=== PATIENT | female | born 1950 | race Caucasian/White ===

== ENCOUNTER → 2017-10-05 | Outpatient (CLI) | payer MEDICARE ==
[~2017-10-05] MED LIST: HYDR-2966 PO; LEVO-317 PO; LOVA20TA99 PO
[2017-10-05 13:21] LABS: PLATELET COUNT, AUTOMATED 333 K/uL (150-450)
--- NOTE | 2017-10-05 18:01 | RADIOLOGY IMAGING REPORT ---
FACILITY: [facility] PATIENT NAME: Cydney Mackey : 1950 MR: [id number] V: [id number] EXAM DATE: ORDERING PHYSICIAN: SANTIAGO MUSA TECHNOLOGIST: Location: [facility] Patient: Cydney Mackey : 1950 Visit/Account:[id number] Date of Sevice: 10/05/2017 HAND 1 OR 2 VIEW BILATERAL Indication: Osteoarthritis, bilateral first MCP pain. Evaluate for rheumatoid arthritis. Comparison: None. Findings: Left hand: There is periarticular osteopenia at the MCP joints. The remaining mineralization is rio l. The DIP and PIP and MCP joints are smooth. There is mild narrowing of the first carpometacarpal leoncio int space. Right hand: There is periarticular osteopenia at the MCP joints. Remaining mineralization is normal. The DIP, PIP, and MCP joints are smooth. There is moderate narrowing of the first carpometacarpal anabela nt. IMPRESSION: 1. There is bilateral periarticular osteopenia at the MCP joints, which can represent early rheumato id arthritis. There are no marginal erosions in either right or left hand. 2. Moderate osteoarthritic degenerative changes at the first carpometacarpal joint bilaterally. Report Dictated By: Santiago Brothers at 10/05/2017 5:56 PM Report E-Signed By: Santiago Brothers at 10/05/2017 5:58 PM WSN:[id number]
== END ==
LOC: RAD 12:51
PROVIDERS: ATTEND Internal Medicine Rheumatology
DX: M85.842 Other specified disorders of bone density and structure, left hand (principal); M85.841 Other specified disorders of bone density and structure, right hand; M19.042 Primary osteoarthritis, left hand; M19.041 Primary osteoarthritis, right hand; M25.50 Pain in unspecified joint; M79.641 Pain in right hand; Z79.899 Other long term (current) drug therapy
CPT/HCPCS: 36415; 73120; 81001; 84443; 85025; 85651; 86038; 86140; 86160; 86200; 86225; 86235; 86430; 86706; G0472; 82040; 82247; 82310; 82374; 82435; 82565; 82947; 84075; 84132; 84155; 84295; 84450; 84460; 84520; 86803

== ENCOUNTER → 2017-10-17 | Outpatient (CLI) | payer MEDICARE ==
--- NOTE | 2017-10-17 13:53 | RADIOLOGY IMAGING REPORT ---
FACILITY: [facility] PATIENT NAME: Cydney Mackey : 1950 MR: [id number] V: [id number] EXAM DATE: ORDERING PHYSICIAN: GO WOOD TECHNOLOGIST: Location: [facility] Patient: Cydney Mackey : 1950 Visit/Account:[id number] Date of Sevice: 10/17/2017 EXAMINATION: Thyroid ultrasound 10/17/2017 12:30 PM History: Hypothyroidism COMPARISON STUDIES: Ultrasound of the neck 07/27/2015 FINDINGS: Thyroid size: Right lobe 2.7 x 1.2 x 1.2 cm Left lobe 3.8 x 0.7 x 1.1 cm Isthmus 2 mm Thyroid nodules: Right lobe - parenchyma is diffusely heterogeneous. Likely discrete hypoechoic ovoid nodule in the inferior aspect measures 9-10 x 4 x 5 mm. No significant discrete focal finding. Left lobe - diffusely heterogeneous parenchyma similar to the right. No discrete solid or cyst ic nodule. Isthmus - none Thyroid vascularity: Within normal range IMPRESSION: 1. Small and diffusely heterogeneous thyroid suggesting a chronic thyroiditis pattern. 2. Hypoechoic inferior pole right lobe thyroid nodule. Sonographic surveillance would be reasonable although FNA assessment would be available if desired. REFERENCE: 2015 [place] [employer] Management Guidelines for Adult Patients with Thyroid Nodules and D ifferentiated Thyroid Cancer: The [place] [employer] Guidelines Task Force on Thyroid Nodul es and Differentiated Thyroid Cancer. SONOGRAPHIC PATTERNS: * Benign: Purely cystic nodules (no solid component); estimated risk of malignancy <1 percent; no bi opsy recommended. * Very Low Suspicion: Spongiform or partially cystic nodules without any of the sonographic features described in low, intermediate, or high suspicion patterns; estimated risk of malignancy <3 percent; consider FNA at > 2 cm (Observation without FNA is also a reasonable option). * Low Suspicion: Isoechoic or hyperechoic solid nodule, or partially cystic nodule with eccentric so lid areas, without microcalcification, irregular margin or ETE (extra-thyroidal extension), or taller than wide shape; estimated risk of malignancy 5-10 percent; recommend FNA at >1.5 cm. * Intermediate Suspicion: Hypoechoic solid nodule with smooth margins without microcalcifications, E TE (extra-thyroidal extension), or taller than wide shape; estimated risk of malignancy 10-20 percent ; recommend FNA at > 1 cm. * High Suspicion: Solid hypoechoic nodule or solid hypoechoic component of a partially cystic nodule with one or more of the following features: irregular margins (infiltrative, microlobulated), microc alcifications, taller than wide shape, rim calcifications with small extrusive soft tissue component, evidence of ETE (extra-thyroidal extension); estimated risk of malignancy >70-90 percent; recommend FNA at > 1 cm. NOTES: * Although a sonographically suspicious subcentimeter thyroid nodule without evidence of extrathyroi deniz extension or sonographically suspicious lymph nodes may be observed with close sonographic follow -up rather than pursuing immediate FNA, patient age and preference may modify decision-making. A > 50% interval increase in nodule volume and/or development of new suspicious sonographic features are felt to be a valid reasons for potential re-aspiration of a nodule previously shown to have benig n FNA cytology. Report Dictated By: Santiago Davidson MD at 10/17/2017 1:45 PM Report E-Signed By: Santiago Davidson MD at 10/17/2017 1:49 PM WSN:[email or web address]
--- NOTE | 2017-10-17 15:19 | RADIOLOGY IMAGING REPORT ---
FACILITY: [facility] PATIENT NAME: LIDIA PADILLA : [id number] MR: [id number] V: [id number] EXAM DATE: [id number] ORDERING PHYSICIAN: GO WOOD TECHNOLOGIST: Amanda Zavala PROCEDURE: MAMMOGRAM SCREENING RIGHT UNILATERAL WITH CAD ASSISTED INTERPRETATION & 3D TOMOSYNTHESIS COMPARISON: 06/13/16 & priors back to 06/10/2001 INDICATIONS: screening/previous Left mastectomy. FINDINGS: The Right breast has scattered fibroglandular parenchymal density. There is an ovoid fairly circumscribed appearing fibroadenoma nodule or mass in the 8 o'clock area of the Right breast at mid to posterior depth which is not well seen previously. In both planes there is some suggestion of potential architectural distortion around this although its margins seem fairly smooth. This is on slice 12 in the CC & MLO planes. The remainder of the breast is mammographically unremarkable & unchanged. DIAGNOSTIC CATEGORY 0--INCOMPLETE: NEED ADDITIONAL IMAGING EVALUATION. RECOMMENDATIONS: ADDITIONAL MAMMOGRAPHIC VIEWS REQUIRED: RIGHT BREAST. ULTRASOUND: RIGHT BREAST. 1. Although the mass is fairly convincing I think repeat spot compression CC & MLO views with tomosynthesis would be worthwhile to exclude the presence of true architectural distortion associated with the lower outer quadrant mass. 2. Ultrasound of the 8 o'clock area in the lower outer quadrant mass is also recommended. IMPRESSION: BIRADS 0: Incomplete. Dictated by: Santiago Davidson on 10/17/2017 at 13:37 Transcribed by: JOSE on 10/17/2017 at 15:08 Approved by: Santiago Davisdon on 10/17/2017 at 15:18 [facility]
== END ==
LOC: MAMO 00:10
PROVIDERS: ATTEND Family Medicine
DX: Z12.31 Encounter for screening mammogram for malignant neoplasm of breast (principal); R92.8 Other abnormal and inconclusive findings on diagnostic imaging of breast; E04.9 Nontoxic goiter, unspecified
CPT/HCPCS: 76536; 77063; 77067

== ENCOUNTER → 2018-03-05 | Outpatient (CLI) | payer MEDICARE ==
--- NOTE | 2018-03-06 08:24 | RADIOLOGY IMAGING REPORT ---
FACILITY: [facility] [place] PATIENT NAME: LIDIA PADILLA : [id number] MR: [id number] V: [id number] EXAM DATE: [id number] ORDERING PHYSICIAN: GO WOOD TECHNOLOGIST: Tammy Baumann RT(R)(CT) PROCEDURE:US RIGHT BREAST COMPARISON:Right screening mammogram of 10/17/17. INDICATIONS:Further Evaluation FINDINGS: In the 9 o'clock position of the Right breast 5cm from the nipple is an ovoid hypoechoic nodule measuring 5.2mm in maximal dimension. The margins are slightly irregular and there is a small amount acoustic shadowing. This likely accounts for the nodular density of architectural distortion seen on the recent mammogram. An Ultrasound guided core biopsy of this nodule with biopsy clip placement and post biopsy mammogram recommended for further evaluation. DIAGNOSTIC CATEGORY 4--SUSPICIOUS FOR MALIGNANCY. RECOMMENDATIONS: ULTRASOUND-GUIDED CORE BIOPSY: RIGHT BREAST. IMPRESSION: BIRADS 4: Suspicious for malignancy. Ultrasound guided core biopsy of the hypoechoic shadowing nodule 9 o'clock position of the Right breast 5cm from the nipple recommended. A post biopsy clip placement and mammogram also recommended to document weather this nodule actually represents the mammographically detectable nodule. Findings were discussed with the patient at the time of the examination. Dictated by: Lorena Rome M.D. on 03/05/2018 at 16:28 Transcribed by: DENZEL on 03/06/2018 at 8:13 Approved by: Lorena Rome M.D. on 03/06/2018 at 8:23 [facility]
== END ==
LOC: US 00:36
PROVIDERS: ATTEND Family Medicine
DX: N63.13 Unspecified lump in the right breast, lower outer quadrant (principal)

== ENCOUNTER 2018-03-12 13:51 | Outpatient (RCR) | payer MEDICARE ==
[2018-03-12 14:31] LABS: INR 0.97
--- NOTE | 2018-03-15 17:23 | RADIOLOGY IMAGING REPORT ---
FACILITY: [facility] [place] PATIENT NAME: LIDIA PADILLA : [id number] MR: [id number] V: [id number] EXAM DATE: [id number] ORDERING PHYSICIAN: GO WOOD TECHNOLOGIST: Binta Mathis RDMS PROCEDURE: BIOPSY RIGHT BREAST COMPARISON: None. INDICATIONS: ABNORMAL RT MAMMO/MASS 9 O'CLOCK POSITION RIGHT BREAST FINDINGS: Informed consent was obtained. Patient's Right breast was prepped in the usual sterile fashion. Local anesthesia was accomplished with 1% Lidocaine. Under sonographic guidance four 12 Gauge core biopsies were obtained through the hypoechoic in the 9 o'clock position of the Right breast. The samples were placed in formalin & shown to the patient & sent to the laboratory for further evaluation. A biopsy clip was then placed in the biopsy site. A post biopsy mammogram demonstrated the biopsy clip to be located within the small nodular density in the 9 o'clock position of the Right breast. IMPRESSION: 1. Successful sonographically guided Right breast biopsy. 2. Pathology results are pending. Dictated by: Lorena Rome M.D. on 03/14/2018 at 16:29 Transcribed by: JOSE on 03/15/2018 at 9:56 Approved by: Lorena Rome M.D. on 03/15/2018 at 17:22 [facility]
--- NOTE | 2018-03-15 17:23 | RADIOLOGY IMAGING REPORT ---
FACILITY: [facility] PATIENT NAME: LIDIA PADILLA : [id number] MR: [id number] V: [id number] EXAM DATE: [id number] ORDERING PHYSICIAN: GO WOOD TECHNOLOGIST: Binta Mathis RDMS PROCEDURE: BIOPSY RIGHT BREAST COMPARISON: None. INDICATIONS: ABNORMAL RT MAMMO/MASS 9 O'CLOCK POSITION RIGHT BREAST FINDINGS: Informed consent was obtained. Patient's Right breast was prepped in the usual sterile fashion. Local anesthesia was accomplished with 1% Lidocaine. Under sonographic guidance four 12 Gauge core biopsies were obtained through the hypoechoic in the 9 o'clock position of the Right breast. The samples were placed in formalin & shown to the patient & sent to the laboratory for further evaluation. A biopsy clip was then placed in the biopsy site. A post biopsy mammogram demonstrated the biopsy clip to be located within the small nodular density in the 9 o'clock position of the Right breast. IMPRESSION: 1. Successful sonographically guided Right breast biopsy. 2. Pathology results are pending. Dictated by: Lorena Rome M.D. on 03/14/2018 at 16:29 Transcribed by: JOSE on 03/15/2018 at 9:56 Approved by: Lorena Rome M.D. on 03/15/2018 at 17:22 [facility]
[2018-03-30] MEDS ORDERED: GLUC-125 PO (16:30)
[2018-03-30] MEDS ORDERED: HEAL N SOOTHE PO (16:30)
[2018-03-30] MEDS ORDERED: OMEG-36 PO (16:30)
[2018-03-30] MEDS ORDERED: MV-M1TAB19 PO (16:30)
[2018-03-30] MEDS ORDERED: FURO20TA19 PO (16:32)
[2018-03-30] MEDS ORDERED: POTA10CA40 PO (16:32)
[2018-04-03] MEDS ORDERED: PRED-1 PO (08:50)
[2018-04-03] MEDS ORDERED: LEVO75TA73 PO (08:50)
[2018-04-03] MEDS ORDERED: PRAV20TA65 PO (08:50)
[2018-04-03] MEDS ORDERED: HYDR200T42 PO (08:50)
== END 2018-03-14 12:00 | disposition home or self-care (01) ==
LOC: US 13:51
PROVIDERS: ATTEND Family Medicine
DX: R92.2 Inconclusive mammogram (principal)
CPT/HCPCS: 19083; 36415; 77061; 77065; 85610; 85730; 88305; 88344; 88377

== ENCOUNTER 2018-04-05 01:55 | Observation (INO) | payer MEDICARE ==
[2018-04-04 13:15] LABS: PLATELET COUNT, AUTOMATED 281 K/uL (150-450)
--- NOTE | 2018-04-04 15:55 | RADIOLOGY IMAGING REPORT ---
FACILITY: [facility] PATIENT NAME: Cydney Mackey : 1950 MR: [id number] V: [id number] EXAM DATE: ORDERING PHYSICIAN: JOAQUÍN FARRELL TECHNOLOGIST: Location: [facility] [place] Patient: Cydney Mackey : 1950 Visit/Account:[id number] Date of Sevice: 04/04/2018 Cervical spine with flexion/extension views, three views. HISTORY: Preop, history of rheumatoid arthritis. COMPARISON: None. Mild loss of disc height is present at C2-3 and C3-4. Small endplate osteophytes and moderate loss o f disc height are present at C4-5. The C4 vertebral body is subluxed anteriorly by 2 mm with respect to C5, unchanged during flexion and extension. Moderate-sized endplate osteophytes, endplate sclero sis, vacuum phenomenon, and moderate to severe loss of disc height are present at C5-6. Small endpla te osteophytes and mild loss of disc height are present at C6-7. The C6 vertebral body is subluxed a nteriorly by 2 mm with respect to C7, unchanged during flexion and extension. Mild facet hypertrophy is present bilaterally at all cervical levels. Bony hypertrophy is present along the dens. Moderat e to severe joint space narrowing is present along the anterior aspect of the dens. No atlantoaxial subluxation occurs during flexion and extension. The bony spinal canal diameter is normal. No preve rtebral soft tissue swelling. IMPRESSION: Moderate to severe multilevel degenerative disc disease. Grade 1 C4-5 and C6-7 degenerative spondylolisthesis. Report Dictated By: Yao Hampton MD at 04/04/2018 3:47 PM Report E-Signed By: Yao Hampton MD at 04/04/2018 3:51 PM WSN:[email or web address]
[~2018-04-05] VITALS: Ht 157.5 cm; Wt 94.8 kg
[2018-04-05] VITALS (12 sets, daily range): BP systolic 98–147; BP diastolic 49–87
[~2018-04-05 01:55] MED LIST changes: +FURO20TA19 PO; +GLUC-125 PO; +HEAL N SOOTHE PO; +HYDR200T42 PO; +LEVO75TA73 PO; +MV-M1TAB19 PO; +OMEG-36 PO; +POTA10CA40 PO; +PRAV20TA65 PO; +PRED-1 PO
[2018-04-05] MEDS ORDERED: ACETAMINOPHEN(*)1000 MG/100 ML 100 ML IVPB ONE (10:59)
[2018-04-05] MEDS ORDERED: LIDOCAINE/PRILOCAINE 5 GM TUBE TP ONE (11:27)
[2018-04-05] MEDS ORDERED: LIDOCAINE MPF 1% 5 ML VIAL ONE (11:54)
[2018-04-05] MEDS ORDERED: METOCLOPRAMIDE 10 MG/2 ML SDV ONE (11:54)
[2018-04-05] MEDS ORDERED: ONDANSETRON 4 MG/2 ML VIAL ONE (11:54)
[2018-04-05] MEDS ORDERED: PROPOFOL EMUL(*) 10MG/ML 20 ML 20 ML ONE (11:54)
[2018-04-05] MEDS ORDERED: DEXAMETHASONE SOD 4 MG/ML VIAL ONE (11:55)
[2018-04-05] MEDS ORDERED: fentaNYL CITR 250 MCG/5 ML AMP ONE (12:00)
[2018-04-05] MEDS ORDERED: ceFAZolin(*) 2GM/D5W 50ML 50 ML IVPB ONE (12:55)
[2018-04-05] MEDS ORDERED: NORMOSOL R SOLN(*) 1000 ML BAG 1,000 ML IV PRN (12:55)
[2018-04-05] MEDS ORDERED: HYDROCORTISONE 100 MG/2 ML IVP ONE (12:55)
[2018-04-05] MEDS ORDERED: MIDAZOLAM 2 MG/2 ML VIAL IVP PRN (12:55)
[2018-04-05] MEDS ORDERED: FAMOTIDINE 20 MG TAB PO ONE (12:55)
[2018-04-05] MEDS ORDERED: LIDOCAINE/SOD BICARB 8.4% SYR ID ONE (12:55)
[2018-04-05] MEDS ORDERED: ROPIVACAINE 0.5% 20 ML VIAL ONE (15:20)
[2018-04-05] MEDS ORDERED: HYDROmorphone HCL 2 MG/ML SDV ONE (15:23)
--- NOTE | 2018-04-05 17:47 | RADIOLOGY IMAGING REPORT ---
FACILITY: [facility] [place] PATIENT NAME: Cydney Mackey : 1950 MR: [id number] V: [id number] EXAM DATE: ORDERING PHYSICIAN: JOAQUÍN FARRELL TECHNOLOGIST: Location: [facility] [place] Patient: Cydney Mackey : 1950 Visit/Account:[id number] Date of Sevice: 04/04/2018 SENTINAL NODE STUDY Provided History: [place] lymph node biopsy Additional History: Patient scheduled for right mastectomy Comparison: Prior mammograms Procedure: Preoperative lymph node localization procedure. Following informed consent and timeout the right breast was swabbed with ChloraPrep. Thereafter, technetium 99m labeled Tilmanocept ([facility] ) was injected intradermally at 12:00 3:00 6:00 and 9:00 at the periareolar border. Approximately 496 microcuries of technetium 99m labeled Tilmanocept was administered. [facility] for obtained.. IMPRESSION: Preoperative intradermal administration of technetium 99m labeled radiotracer to assist i n localizing sentinel lymph nodes for surgical extirpation. Report Dictated By: Ramesh Davis MD at 04/05/2018 5:41 PM Report E-Signed By: Ramesh Davis MD at 04/05/2018 5:43 PM WSN:[email or web address]
[2018-04-05] MEDS ORDERED: NS(*) 0.9% 1000 ML BAG 1,000 ML IV PRN (17:48)
[2018-04-05] MEDS ORDERED: MORPHINE 2 MG/ML SYR IVP PRN (17:50)
[2018-04-05] MEDS ORDERED: NALOXONE HCL 0.4 MG/ML VIAL IVP PRN (17:50)
[2018-04-05] MEDS ORDERED: FLUSH 10 ML SYR IVP PRN (17:50)
[2018-04-05] MEDS ORDERED: ONDANSETRON 4 MG/2 ML VIAL IVP PRN (17:50)
--- NOTE | 2018-04-05 17:57 | Post Operative Progress Note ---
Post Operative Progress Note Date: Apr 05, 2018 Time: 17:51 Surgeon: Wade Dictation number: [id number] Anesthesia: GETA by Dr. Baker Pre-Op Diagnosis: Right Breast Cancer H/O left breast cancer Post-Op Diagnosis: CARLOS Findings: None 4 SLN negative for cancer on frozen section Procedure(s): Right simple masectomy with right axillary SLN excision x4 Specimen Removed:(May be N/A): 1) SLN 1-4 2) Right breast Complications: None Fluids: See anesthesia record Estimated Blood Loss: 200mL Date OP Note Dictated: Apr 05, 2018 Time OP Note Dictated: 17:53 JOAQUÍN FARRELL MD Apr 05, 2018 17:57
--- NOTE | 2018-04-05 19:41 | OPERATIVE REPORT 1 ---
EVENT DATE: April 05, 2018 SURGEON: Zachary Olvera MD ANESTHESIOLOGIST: Zachary Baker MD ANESTHESIA: General endotracheal anesthesia. PREOPERATIVE DIAGNOSIS Right breast cancer. POSTOPERATIVE DIAGNOSIS Right breast cancer. PROCEDURES PERFORMED 1. Right simple mastectomy. 2. Right axillary sentinel lymph node excision. COMPLICATIONS None. CONDITION Stable. BLOOD LOSS 200 mL INDICATIONS This is a 67-year-old female who presented to my office with a newly diagnosed right breast cancer. 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 DESCRIPTION OF PROCEDURE The patient was brought into the operating room and placed supine on the operating table. General endotracheal anesthesia was administered, and her breast, axilla, and arm were prepped and draped in a sterile fashion. She had previously had technetium 99 injected in the circumareolar skin at Radiology to identify right axillary lymph nodes, and I injected Lymphazurin today in the circumareolar dermis as well. I then marked the skin to include the nipple- areolar complex in a big elliptical incision extending to the right axilla. I then anesthetized the skin with 0.5% ropivacaine plain. I then made a skin incision where I had marked the skin and dissected through the dermis and into the subcutaneous fat. I then created subcutaneous flaps all the way up to the clavicle, down to the rectus muscles, and over towards the axilla. Once I got into the axilla, I used the gamma probe and identified the sentinel lymph nodes. I entered the axillary contents and was able to remove four axillary lymph nodes. These were sent to Pathology for frozen section. While I was waiting for those results, I continued my dissection medially all the way to the sternum, and then I identified the fascia of the pectoralis major muscle. I raised the fascia off the muscle and lifted the breast off the muscle from medial to lateral all the way until I got to the axillary contents. I then amputated the specimen. I did bessie the tail of Adam with a suture to identify this for orientation purposes with the pathologist. At this time, we had gotten the results back from Pathology, and all four lymph nodes were found not to have any evidence of metastatic cancer. At this point, I irrigated and dried the patient's chest wall and surgical wound and removed all of the irrigation fluid. I made sure everything was hemostatic, and then I placed two 10 mm flat Julio-Villatoro drains, one medial and one lateral running through the axilla. These exited below the incision and were sutured to the skin with 2-0 nylon sutures. I then closed the skin with interrupted 3-0 Vicryl deep dermal sutures and then skin hilda. Her skin was cleaned and dried, and then I applied sterile surgical dressings to the incision and drain dressings to the drains. She was then awakened and extubated in the operating room and transported to the recovery room in stable condition having tolerated the procedure without any apparent problems. MACY
[2018-04-05] MEDS ORDERED: HYDROXYCHLOROQUINE SULFATE 200 MG XX SCH (21:00)
[2018-04-05] MEDS: DOCUSATE SODIUM 100 MG CAP PO SCH (21:23)
[2018-04-05] MEDS: FAMOTIDINE 20 MG TAB PO SCH (21:23)
[2018-04-05] MEDS: HYDROXYCHLOROQUINE 200 MG TAB PO SCH (21:23)
[2018-04-06 02:52] VITALS: BP 100/63
[2018-04-06 07:23] VITALS: BP 107/62
[2018-04-06 08:03] VITALS: Ht 157.5 cm; Wt 94.8 kg
[2018-04-06] MEDS ORDERED: [UNRECOGNIZED DRUG - OTHER] PO SCH (09:00)
[2018-04-06] MEDS ORDERED: OMEGA-3 500 MG CAP PO SCH (09:00)
[2018-04-06] MEDS ORDERED: PRAVASTATIN SOD 20 MG TAB PO SCH (09:00)
[2018-04-06] MEDS ORDERED: LEVOTHYROXINE SOD 0.075 MG TAB PO SCH (09:00)
[2018-04-06] MEDS ORDERED: MULTIVITAMINS TAB PO SCH (09:00)
[2018-04-06] MEDS ORDERED: predniSONE 5 MG TAB PO SCH (09:00)
[2018-04-06] MEDS ORDERED: GLUCOSAMINE-CHONDROITIN CAP PO SCH (09:00)
[2018-04-06] MEDS ORDERED: HYDROCHLOROTHIAZIDE 25 MG TAB PO SCH (09:00)
[2018-04-06] MEDS: FAMOTIDINE 20 MG TAB PO SCH (09:02)
[2018-04-06] MEDS: DOCUSATE SODIUM 100 MG CAP PO SCH (09:02)
[2018-04-06] MEDS: HYDROXYCHLOROQUINE 200 MG TAB PO SCH (09:03)
[2018-04-06] MEDS ORDERED: DOCU-202 PO (09:32)
[2018-04-06] MEDS ORDERED: PER PO (09:32)
--- NOTE | 2018-04-06 09:39 | Short(Outpt) Discharge Summary ---
Discharge Summary Reason for Hosp/Final Diag: (1) Breast cancer, right Status: Chronic Hospital Course & Plan: 04/06/18: POD#1 s/p Right mastectomy, Right axillary SLN excision. Doing well. Will d/c to home this morning. Departure Discharge to: Home, Self Care Discharge Instructions Home Meds Active Scripts Oxycodone/Acetaminophen (OXYCODONE/ACETAMINOPHEN 5MG/325 MG) 5 Mg/325 Mg Tab, 1 TAB PO Q4H PRN for MODERATE PAIN, #20 TAB 0 Refills Prov:JOAQUÍN FARRELL MD 04/06/18 Docusate Sodium (DOCUSATE SODIUM) 100 Mg Capsule, 1 CAP PO BID, #30 CAPSULE 0 Refills Prov:JOAQUÍN FARRELL MD 04/06/18 Reported Medications Hydroxychloroquine Sulfate (HYDROXYCHLOROQUINE SULFATE) 200 Mg Tablet, 200 MG PO BID 04/03/18 Prednisone 10 Mg Tab (PREDNISONE 10 MG TAB) 10 Mg Tablet, 5 MG PO QDAY, TAB 04/03/18 Pravastatin Sodium (PRAVACHOL) 20 Mg Tablet, 20 MG PO QDAY, TAB 04/03/18 Levothyroxine Sodium (LEVOTHYROXINE SODIUM) 75 Mcg Tablet, 75 MCG PO QDAY, TAB 04/03/18 Potassium Chloride (POTASSIUM CHLORIDE) 10 Meq Capsule.er, 10 MEQ PO PRN, CAP 03/30/18 Furosemide (LASIX) 20 Mg Tablet, 1 TAB PO PRN, TAB 03/30/18 [Heal n jolene] No Conflict Check, 1 CAP PO QDAY 03/30/18 Mv-Mn/Iron/Fa/Herbal Cmplx#190 (VITAMIN D3 COMPLETE CAPLET) 1 Each Tablet, 1 EACH PO QDAY 03/30/18 Gluc/Oliver-Msm#2/C/D3/Mayur/Born (BYXEDLVTDW-[id number]-DZN TAB) 1 Each Tablet, 1 EACH PO QDAY 03/30/18 Mesa-3 Fatty Acids/Fish Oil (OMEGA 3 FISH OIL SOFTGEL) 1 Each Capsule.dr, 1 EACH PO QDAY 03/30/18 Hydrochlorothiazide (HYDROCHLOROTHIAZIDE) 25 Mg Tablet, 1 TAB PO QDAY TAKE ONE TABLET BY MOUTH EVERY DAY 12/02/13 Discontinued Reported Medications Levothyroxine Sodium (LEVOXYL) 125 Mcg Tablet, 125 MCG PO QDAY TAKE ONE TABLET BY MOUTH IN THE MORNING ON AN EMPTY STOMACH AT LEAST 30 MINUTES BEFORE FOOD 12/02/13 Lovastatin (LOVASTATIN) 20 Mg Tablet, 20 MG PO QDAY 12/02/13 Follow up Referrals: General Surgery - 04/18/18 @ Surgery, General with JOAQUÍN FARRELL MD You have a follow up appointment scheduled with Dr. Farrell on 04/18/18, at 4:00pm. Diet: Regular Activity: As Tolerated Special Instructions: You may remove all the dressings on 04/07/18, then you can shower. After showering, leave the main incision open to air but apply new drain sponges around the drains. Avoid any extremes of motion in your right shoulder for 2 weeks, no lifting your right arm above your shoulder or behind your back. Please empty the drains once or twice every day and record how much you empty along with the date and time that you empty the drains. Bring the drainage log with you to your follow up appointment. Problem Qualifiers (1) Breast cancer, right: Breast location: unspecified site of breast Estrogen receptor status: positive Patient sex: female Qualified Codes: C50.911 - Malignant neoplasm of unspecified site of right female breast; Z17.0 - Estrogen receptor positive status [ER+] JOAQUÍN FARRELL MD Apr 06, 2018 09:39
== END 2018-04-06 09:30 | disposition home or self-care (01) ==
LOC: OR 01:55 → INTOOBSV 18:20 → MED 18:20
PROVIDERS: ADMIT Surgery; ATTEND Surgery
DX: C50.911 Malignant neoplasm of unspecified site of right female breast (principal); E03.9 Hypothyroidism, unspecified; E78.00 Pure hypercholesterolemia, unspecified; I10 Essential (primary) hypertension; M06.9 Rheumatoid arthritis, unspecified; Z87.891 Personal history of nicotine dependence
CPT/HCPCS: 19307; 36415; 72040; 78195; 85025; 88305; 88309; 88331; 88332; 88344; 93005; A9270; A9520; G0378; J0131; J1100; J1170; J1720; J2001; J2250; J2405; J2704; J2765; J2795; J3010; J7030; J7512; 82310; 82374; 82435; 82565; 82947; 84132; 84295; 84520; J0690

== ENCOUNTER 2018-08-08 12:42 | Outpatient (RCR) | payer MEDICARE ==
[2018-04-06 08:03] VITALS: Wt 101.4 kg
[2018-05-17 13:43] VITALS: BP 131/81
[2018-05-17 14:52] LABS: PLATELET COUNT, AUTOMATED 339 K/uL (150-450)
--- NOTE | 2018-05-19 10:47 | ONCOLOGY CONSULTATION ---
EVENT DATE: May 17, 2018 CHIEF COMPLAINT Patient is referred for newly diagnosed right breast cancer. HISTORY OF PRESENT ILLNESS Patient is a 67-year-old female who is seen today in consultation for a newly diagnosed right breast cancer. Overall, she feels well and for the most part recovered from her mastectomy. However, she developed some cellulitis in the incision site of the right mastectomy. She saw Dr. Olvera, who placed her on Augmentin two days ago. She does have some mild discharge from the site but feels it is getting better. She denies any other significant complaints and is already back to work. ONCOLOGY HISTORY Patient was diagnosed with left breast DCIS in 2003 and underwent a mastectomy. She was recently noted to have an abnormal mammogram in March 2018 and underwent a right mastectomy. Pathology from the right mastectomy April 05, 2018 showed an invasive ductal carcinoma, grade 2, 0.8 cm. Four sentinel lymph nodes were negative and no lymphovascular invasion was noted. Tumor was estrogen receptor positive 80.5%, progesterone receptor positive 15% and HER2/holly negative by FISH. Ki-67 was 12.9%. Oncotype DX recurrence score was 17, low risk, conferring an 11% chance of distant disease recurrence after five years of tamoxifen alone. PAST MEDICAL HISTORY 1. Left breast DCIS, 2003. 2. Right breast cancer, March 2018. 3. Rheumatoid arthritis, September 2017. 4. Hypothyroidism. PAST SURGICAL HISTORY 1. Left mastectomy, 2003. 2. Right mastectomy, 2017. FAMILY HISTORY Mother of lung cancer (smoker). Father of complications from diabetes at age 45. Paternal aunt was diagnosed with bilateral breast cancer at a very advanced age. SOCIAL HISTORY Patient is single. She has two grown daughters. 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 She quit cigarettes approximately 20 years ago. She does drink occasional wine. MEDICATIONS 1. Plaquenil 200 mg b.i.d. 2. Prednisone 10 mg daily. 3. Pravachol 20 mg daily. 4. Levothyroxine 75 micrograms daily. 5. Furosemide 20 mg daily p.r.n. 6. Potassium 10 mEq p.r.n. 7. Hydrochlorothiazide 25 mg daily. ALLERGIES No known drug allergies. REVIEW OF SYSTEMS A 12-point review of systems is performed and is negative except as stated above. PHYSICAL EXAMINATION VITAL SIGNS: Blood pressure 131/81, pulse 88, respirations 16, temperature 97.6, O2 sat 96%. GENERAL: Well-developed, well-nourished female in no acute distress. HEAD: Normocephalic, atraumatic. EYES: Sclerae anicteric. MOUTH: Moist mucous membranes. No lesions. NECK: Supple. No palpable adenopathy. LUNGS: Clear bilaterally. CARDIOVASCULAR: Heart rate regular, 88 per minute without murmur, S3 or S4. BREASTS: Status post bilateral mastectomy. The right mastectomy incision has surrounding erythema. There is yellow discharge noted on the dressing. Patient states the erythema has improved significantly since starting Augmentin. ABDOMEN: Soft, nontender with active bowel sounds. No organomegaly. EXTREMITIES: Chronic lower extremity edema. NEURO: Nonfocal. LABORATORY CBC today reveals WBC 5.8, hemoglobin 14.3, hematocrit 41.9, platelets 339,000. CMP is within normal limits. IMPRESSION AND PLAN The patient is a 67-year-old female recently diagnosed with right breast cancer on April 05, 2018. She also has a history of left breast DCIS in 2004. She underwent right mastectomy, which showed an invasive ductal carcinoma, grade 2, 0.8 cm with four sentinel nodes negative. No lymphovascular invasion noted. ER/MI positive, HER2/holly negative by FISH. Oncotype DX recurrence score low risk. 1. Right breast cancer. Patient is recovering from her mastectomy. We spent a total of 45 minutes today discussing the nature of breast cancer. We also reviewed her pathology report, which was very favorable. She is grateful for this. We then discussed likely treatment with an aromatase inhibitor. Some of the possible side effects could include hot flashes, night sweats, arthralgias/myalgias and possible loss of bone density. She will see Dr. Chowdhury on June 27, 2018 and an aromatase inhibitor will be prescribed at that time. This plan has been discussed with Dr. Chowdhury. 2. Right breast cellulitis. Patient saw Dr. Olvera on May 15, 2018, who started her on Augmentin. Right chest wall is still erythematous with mild drainage from the incision but she states this is much improved. 3. Bone health. As above, discussed that an aromatase inhibitor could possibly cause bone loss. I will schedule her for a baseline bone density test as she states it has been many years since she had one. 4. List of shops in [facility] that fit people for postmastectomy bras and prostheses given to patient. She understands that she most be completely healed before pursuing this. 5. Followup with Dr. Chowdhury on June 27, 2018 for continued care. MACY
--- NOTE | 2018-06-12 14:32 | RADIOLOGY IMAGING REPORT ---
FACILITY: PATIENT NAME: Cydney Mackey : 1950 MR: [id number] V: [id number] EXAM DATE: ORDERING PHYSICIAN: HOPE SHELLEY TECHNOLOGIST: Location: [facility] - [place] Patient: Cydney Mackey : 1950 Visit/Account:[id number] Date of Sevice: 06/12/2018 DEXA Scan Clinical history: History of breast cancer, history of osteopenia. Comparison: DEXA scan from 10/18/2012. LUMBAR SPINE: The bone mineral density (BMD) measured from L2-L4 correlates with a Z-score of 1.9 and a T-score of 1.4 which is normal as defined by the World Health Organization. The corresponding risk of fracture in the lumbar spine is Not increased compared with a young adult reference population. This value murillo s increase by seven % since the prior study. More than 5% change is considered significant. HIP: Bone mineral density (BMD) measured in the LEFT total hip region correlates with a Z-score 0.8 and a T-score of -1.3 which is osteopenia as defined by the World Health Organization. The corresponding r isk of fracture in the hip is 2-3 times increased compared to a young adult reference population. Thi s value has decrease by 0.9 % since the prior study. More than 5% change is considered significant. T score left femoral neck -1.2 Bone mineral density (BMD) measured in the Femoral Neck region measures 0.876 g/cm?. IMPRESSION: 1. Lumbar spine: Normal. There has been 7% increase in the bone mineral density since the previous exam. 2. Left Total Hip: Osteopenia. There has been 0.9% decrease in the bone mineral density since the p revious exam. 3. Femoral Neck: Bone Mineral Density is 0.876 g/cm? The next DEXA scan of this patient should include the following sites: L2-L4 and the left hip. FRAX? WHO Fracture Risk Assessment Tool link: <http://www.shef.ac.uk/FRAX/tool.jsp?locationValue=9> PLEASE NOTE: 1) The World Health Organization defines low BMD as follows: T-score Normal > -1 Osteopenia < -1 and > -2.5 Osteoporosis < -2.5 without fractures Established osteoporosis < -2.5 with fractures 2) In general, you may wish to consider: Diagnosis Treatment Follow-up DEXA Normal BMD Prevention 2-3 years Osteopenia Prevention/therapy 1-2 years Osteoporosis Therapy Yearly 3) Fracture risk estimated from the T-score is more accurate for vertebral fractures (often spontane ous) than for hip fractures. Report Dictated By: Lorena Rome MD at 06/12/2018 2:21 PM Report E-Signed By: Lorena Rome MD at 06/12/2018 2:23 PM WSN:[email or web address]
[2018-06-27 09:20] VITALS: BP 114/70
--- NOTE | 2018-06-27 13:10 | ONCOLOGY FOLLOW UP NOTE ---
EVENT DATE: June 27, 2018 REASON FOR FOLLOWUP 1. ER/UT positive right breast cancer, status post mastectomy. 2. Remote history of left breast DCIS (2003), status post mastectomy. INTERIM HISTORY Cydney returns to the clinic for a followup visit today. She reports that she has been feeling better. Her postop infected seroma has, for the most part, resolved. She denies fever and new pain. She has had some limited range of motion in the right arm. Pain is controlled. She reports good appetite and her weight has been stable. She has had no shortness of breath, chest pain or cough. She denies changes in bowel and bladder habits. As discussed, her work keeps her quite busy and active. 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 ONCOLOGY HISTORY 1. Stage 1 ER/UT positive invasive ductal carcinoma of the right breast, status post right mastectomy April 08, 2018. Four sentinel lymph nodes negative. No lymphovascular invasion. HER2/holly is negative by FISH. Ki-67 was 12.9%. Oncotype DX recurrence score was 17, low risk. 2. 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 The patient underwent mastectomy and she has had no evidence of recurrence. PAST MEDICAL HISTORY 1. Right breast cancer, as above. 2. Left breast DCIS, 2003. 3. Rheumatoid arthritis, diagnosed in September 2017. 4. Hypothyroidism. PAST SURGICAL HISTORY 1. Left mastectomy, 2003. 2. Right mastectomy, 2018. MEDICATIONS 1. Plaquenil 200 mg p.o. b.i.d. 2. Prednisone 10 mg p.o. daily. 3. Pravachol 20 mg p.o. daily. 4. Levothyroxine 75 micrograms daily. 5. Lasix 20 mg p.o. daily p.r.n. 6. Potassium 10 mEq as needed orally. 7. Hydrochlorothiazide 25 mg daily. SOCIAL HISTORY Patient is single. She has two grown daughters. 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 She quit smoking about 20 years ago. There is no history of alcohol abuse or illicit drug use. FAMILY HISTORY Her mother of lung cancer. She was a smoker. Her father of complications of diabetes at age 45. A paternal aunt had reportedly been diagnosed with bilateral breast cancer at a very advanced age. ALLERGIES No known drug allergies. PHYSICAL EXAMINATION VITAL SIGNS: Temperature 97.2, blood pressure 114/70, heart rate 80, respirations 16, oxygen saturation 98% on room air. Weight is 101.4 kg. GENERAL: Alert and oriented x3, in no apparent distress, sitting in the exam room chair. She appears healthy. She is interactive and pleasant. HEENT: Anicteric sclerae. NEUROLOGIC: Grossly nonfocal. Gait is normal. MUSCULOSKELETAL: No edema, clubbing or cyanosis. There is some slight range of motion limitation in the right shoulder. LABORATORY Laboratory studies are [facility]. IMAGING AND PATHOLOGY Please see Oncology History. IMPRESSION AND PLAN 0.8 cm ER/UT positive right breast cancer, status post mastectomy. I had a good visit with Cydney today. We were joined for the entirety of today's visit by Wendy Aguirre NP. Symptomatically, Cydney seems to be doing fairly well. She does have some postop recovery left to do. We spent a good deal of time discussing her surgical pathology, the biology of this tumor, staging and treatment recommendations. We also reviewed her history of contralateral breast ductal carcinoma in situ in 2003, status post mastectomy. The patient will not require adjuvant radiation and I have recommended against chemotherapy. Therefore, we spent the majority of our time today discussing the merits of adjuvant aromatase inhibitor therapy. We discussed common side effects and risks. The biggest concern at this point would be for her rheumatoid arthritis as the aromatase inhibitor can bring about aches and pains which we would need to be very careful with. We also discussed her use of prednisone for the rheumatoid arthritis and her notable osteopenia on recent DEXA scan. The aromatase inhibitor could potentially exacerbate a worsening of bone mineral density. The patient is well aware of this. She does seem to get plenty of activity with work, getting between 10,000-12,000 steps a day on her podometer. When the time comes that she initiates aromatase inhibitor therapy, I have recommended that she continue with vitamin D supplementation and that levels be checked. She will also need to take supplemental calcium. As discussed, I would want for her to recover a bit further before starting the aromatase inhibitor and I would like to review her situation with rheumatology in [facility]. She reports that she is currently tapering her prednisone down but she is not sure about next steps or if a different medication may be tried for control of her rheumatoid arthritis. All questions answered today. I will plan to see her back in the next few months to discuss initiation of AI therapy. I spent a total of 30 minutes of time [id number] with the patient today and 25 minutes of this was spent in direct counseling and coordination of care. MACY
--- NOTE | 2018-07-12 15:40 | ONCOLOGY FOLLOW UP NOTE ---
EVENT DATE: July 11, 2018 BRIEF NOTE I spoke with WILDER Betancourt with Dr. Grace, Rheumatology. Ms. Mackey has been on prednisone for her rheumatoid arthritis. It was felt that Plaquenil was not helping. She has been slowly tapering this and currently is on 10 mg daily. She was recently diagnosed with breast cancer. Our plan has been to start her on an aromatase inhibitor. Bone density showed osteopenia in the hip and femoral neck. [place] and I discussed that both prednisone and an aromatase inhibitor could cause further bone loss. Asia's plan is to taper Ms. Mackey off the prednisone completely, and they are considering starting her on methotrexate. Patient will follow up with Dr. Jacobs on 08/08/18 in anticipation of starting treatment with anastrozole. MTDD
[~2018-08-08 12:42] MED LIST changes: -LEVO-3 PO
[2018-08-08] MEDS ORDERED: LEVO-3 PO (13:38)
[2018-08-08 13:40] VITALS: BP 133/79
[2018-08-08 15:39] LABS: PLATELET COUNT, AUTOMATED 251 K/uL (150-450)
--- NOTE | 2018-08-08 15:46 | RADIOLOGY IMAGING REPORT ---
FACILITY: [facility] PATIENT NAME: Cydney Mackey : 1950 MR: [id number] V: [id number] EXAM DATE: ORDERING PHYSICIAN: JOIE MELO TECHNOLOGIST: Location: [facility] - [place] Patient: Cydney Mackey : 1950 Visit/Account:[id number] Date of Sevice: 08/08/2018 Exam type: CHEST History: Palpable lump upper inner right chest wall. History of right breast cancer with double mast ectomy Comparison: None. Findings: Multiple sonographic images of the upper inner anterior right chest wall and straight no focal abnorm ality. Clinical follow-up recommended. If patient's symptoms persist or worsen CT of the chest wall or MR may be helpful for further evaluation IMPRESSION: 1. No sonographic evidence is identified along the upper inner anterior right chest wall as describe d above. Clinical follow-up recommended Report Dictated By: Lorena Rome MD at 08/08/2018 3:41 PM Report E-Signed By: Lorena Rome MD at 08/08/2018 3:42 PM WSN:[email or web address]
--- NOTE | 2018-08-10 11:04 | ONCOLOGY FOLLOW UP NOTE ---
EVENT DATE: August 08, 2018 DIAGNOSES 1. ER/KY positive right breast cancer, status post mastectomy. 2. Remote history of left breast DCIS (2003), status post mastectomy. CHIEF COMPLAINT Patient is here today for ongoing followup regarding her right breast cancer. She recently had a right mastectomy. She also has a remote history of left breast DCIS, also status post mastectomy. She has not yet started aromatase inhibitor therapy. INTERIM HISTORY Cydney returns to the clinic for ongoing followup. At her last visit, she was noted to have a postop infected seroma, which had resolved. This has not been an issue since. She has had some ongoing limited range of motion in the right arm, although this has somewhat improved. She is not having any focal pain to the area but does tell me that she continues to notice generalized aches and attributes this to her rheumatoid arthritis. She is under the control of her environmental consultant. She reports good appetite and believes her weight is stable. She denies any recent infections. She is still on a steroid taper through her environmental consultant and tells me that she has a couple of days left on the taper. Lastly, it sounds like she will be starting a new medication for her arthritis, possibly methotrexate. Plan was to wait until patient was off oral steroids before initiating AI therapy. She denies any shortness of breath, chest pain or cough. She does notice a new non-painful enlarged area/bump to her right anterior chest, which she feels is new. She is concerned about this. At times, if she pushes too much it can become somewhat tender. This does not bother her when she is lifting up her right arm. She does feel as though she is recovering well but does still have some limited range of motion. She has not had any mood changes while on her steroid taper. She reports that she is quite active and walks quit a bit at work. She has not had any bowel or bladder changes and reports normal bowels. Incidentally, she tells me that she had a chest x-ray today, ordered by her environmental consultant, prior to initiating a new therapy, although she is not sure which new therapy she will be starting. ONCOLOGY HISTORY 1. Stage 1 ER/KY positive invasive ductal carcinoma of the right breast, status post right mastectomy April 08, 2018. Four sentinel lymph nodes negative. No lymphovascular invasion. HER2/holly is negative by FISH. Ki-67 was 12.9%. Oncotype DX recurrence score was 17, low risk. 2. 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 The patient underwent mastectomy and she has had no evidence of recurrence. PAST MEDICAL HISTORY 1. Right breast cancer, as above. 2. Left breast DCIS, 2003. 3. Rheumatoid arthritis, diagnosed in September 2017. 4. Hypothyroidism. PAST SURGICAL HISTORY 1. Left mastectomy, 2003. 2. Right mastectomy, 2017. SOCIAL HISTORY Patient is single. She has two grown daughters. 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 She quit smoking about 20 years ago. There is no history of alcohol abuse or illicit drug use. FAMILY HISTORY Her mother of lung cancer. She was a smoker. Her father of complications of diabetes at age 45. A paternal aunt had reportedly been diagnosed with bilateral breast cancer at a very advanced age. ALLERGIES No known drug allergies. MEDICATIONS 1. Plaquenil 200 mg p.o. b.i.d. 2. Prednisone 10 mg p.o. daily. 3. Pravachol 20 mg p.o. daily. 4. Levothyroxine 75 micrograms daily. 5. Lasix 20 mg p.o. daily p.r.n. 6. Potassium 10 mEq as needed orally. 7. Hydrochlorothiazide 25 mg daily. REVIEW OF SYSTEMS A 12-point review of systems is performed today and is negative other than stated above. PHYSICAL EXAMINATION VITAL SIGNS: Weight not obtained today. Temperature 97.2 degrees Fahrenheit, P 70, R 16, BP 133/79, oxygen saturation 92% on room air. GENERAL: This is a pleasant 67-year old female who appears well-hydrated, well- nourished and is in no acute distress. She is in great spirits. HEAD: Atraumatic, normocephalic. EYES: Anicteric sclerae. ENT/MOUTH: No mucositis. No oral ulcerations or lesions. NECK: Supple. No lymphadenopathy. No JVD. DERM: Small, approximately 2 cm nodule noticed over the right chest wall. This may be a lipoma, though this is somewhat firm. NEURO: Patient is alert and oriented x3. Gait is normal. Grossly nonfocal. PSYCH: Mood and affect are within normal limits. LUNGS: Clear breath sounds to auscultation bilaterally. Chest expansion is symmetrical. Respiratory effort is normal. CARDIOVASCULAR: Regular rate and rhythm. No ectopy. LABORATORY CBC today: WBC 5.3, ANC 3.2, hemoglobin 14.9, hematocrit 43.8%, platelets 251,000. CMP today: Sodium 140, potassium 3.7, serum creatinine 0.80, calcium 9.6, total bilirubin 0.6, AST 20, ALT 32, alkaline phosphatase 71, total protein 7.6. CEA and CA 27-29 ordered and pending. CMP today was largely unremarkable. IMAGING Bone densitometry on June 12, 2018: 1. Lumbar spine: Normal. There has been 7% increase in the bone mineral density since previous exam. 2. Left total hip: Osteopenia. There has been 0.9% decrease in the bone mineral density since the previous exam. 3. Femoral neck: Bone mineral density is 0.876 g/cm. 4. The next DEXA scan of this patient should include the following sites: L2, L4 and the left hip. IMPRESSION AND PLAN This is a pleasant 67-year old female with a 0.8 cm ER/KY positive right breast cancer, status post mastectomy. Overall, Cydney seems to be doing well and is recovering well. It does appear that she may have some postop recovery remaining as she does have some generalized pain which could largely be related to her rheumatoid arthritis, although I do think that she needs physical therapy to help with some right arm complaints which is impairing mobility just a bit. This may also be causing her underlying arthritis to flare. She is aware that she will not require adjuvant radiation and also aware that her medical oncologist has recommended against chemotherapy. In the past, we have discussed her surgical pathology, the biology of her tumor, staging and treatment recommendations. We also reviewed her history of her contralateral breast ductal carcinoma in situ in 2003, status post mastectomy on the left. Her biggest concern at this time, again, is her rheumatoid arthritis. This is a concern as aromatase inhibitor can certainly bring about or cause or worsen generalized aches and pains, so we would need to be careful with this. We also discussed her use of prednisone for her rheumatoid arthritis as well as her notable osteopenia on her recent bone density/DEXA scan. The aromatase inhibitor could potentially exacerbate a worsening of bone mineral density. She is well aware of this and, again, we reviewed this today. I have instructed her to continue to be active with walking. I did remind her that she will need to continue a vitamin D supplementation while on AI therapy as well as daily supplemental calcium. We will periodically check vitamin D levels. At out last visit, end of May/early June, we wished for her to recover a bit more before starting her aromatase inhibitor. Since she is still currently on a prednisone taper, I want to hold off for a few more weeks before starting aromatase inhibitor. We will likely use either anastrazole or letrozole. She believes that she will be starting a new medication in the future, I think methotrexate, per last note entered by Wendy Aguirre NP, and as such I am going to give her a few more weeks. I have also ordered physical therapy and given her name to our physical therapist, Antionette. 1. Imaging: I have ordered a right chest wall ultrasound to evaluate the approximately 2 cm size nodule over the right chest wall. It is only occasionally tender to deep palpation. Otherwise, it is simply noticeable. 2. Rehab: I have ordered physical therapy for patient. 3. Rheumatology: Patient will continue to follow up with rheumatology. She remains on steroid taper and will likely be switched over to methotrexate. 4. I will have the patient return to clinic in three to four weeks for followup with either myself or Dr. Jacobs. At that time, we will initiate therapy with aromatase inhibitor. We did have a long discussion today regarding signs and symptoms and common side effects related to aromatase inhibitor therapy. Separate education note will follow. MACY
--- NOTE | 2018-08-10 20:25 | ONCOLOGY CHEMO TEACHING ---
EVENT DATE: August 08, 2018 DIAGNOSES 1. Estrogen receptor/progesterone receptor-positive right breast cancer, status post mastectomy. 2. Remote history of left breast ductal carcinoma in situ (2004), status post mastectomy. CHIEF COMPLAINT The patient is seen today for chemotherapy teaching. A total of 60 minutes was spent with Ms. Mackey, 100% of time which was [id number] counseling. INTERIM HISTORY Cydney returns to the clinic for ongoing followup. At her last visit, she was noted to have a postop infected seroma, which had resolved. This has not been an issue since. She has had some ongoing limited range of motion in the right arm, although this has somewhat improved. She is not having any focal pain to the area, but does tell me that she continues to notice generalized aches and attributes this to her rheumatoid arthritis. She is under the control of her multiple spindle router operator. She reports good appetite and believes her weight is stable. She denies any recent infections. She is still on a steroid taper through her multiple spindle router operator and tells me that she has a couple of days left on the taper. Lastly, it sound like she will be starting a new medication for her arthritis, possibly methotrexate. Plan was to wait until patient was off oral steroids before initiating AI therapy. She denies any shortness of breath, chest pain, or cough. She does notice a new non-painful enlarged area/bump to her right anterior chest, which she feels is new. She is concerned about this. At times if she pushes too much, it can become somewhat tender. This does not bother her when she is lifting up her right arm. She does feel as though she is recovering well, but does still have some limited range of motion. She has not had any mood changes while on her steroid taper. She reports that she is quite active and walks quite a bit at work. She has not had any bowel or bladder changes and reports normal bowels. Incidentally, she tells me that she had a chest x-ray today ordered by her multiple spindle router operator prior to initiating a new therapy, although she is not sure which new therapy she will be starting. ONCOLOGY HISTORY 1. Stage I ER/WA-positive invasive ductal carcinoma of the right breast, status post right mastectomy April 08, 2018. Four sentinel lymph nodes negative. No lymphovascular invasion. HER2/holly is negative by FISH. Ki-67 was 12.9%. Oncotype DX recurrence score was 17, low risk. 2. 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 The patient underwent mastectomy, and she has had no evidence of recurrence. PAST MEDICAL HISTORY 1. Right breast cancer, as above. 2. Left breast DCIS, 2003. 3. Rheumatoid arthritis, diagnosed in September 2017. 4. Hypothyroidism. PAST SURGICAL HISTORY 1. Left mastectomy, 2003. 2. Right mastectomy, 2017. SOCIAL HISTORY Patient is single. She has two grown daughters. 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 She quit smoking about 20 years ago. There is no history of alcohol abuse or illicit drug use. FAMILY HISTORY Her mother of lung cancer. She was a smoker. Her father of complications of diabetes at age 45. A paternal aunt had reportedly been diagnosed with bilateral breast cancer at a very advanced age. ALLERGIES No known drug allergies. MEDICATIONS 1. Plaquenil 200 mg p.o. b.i.d. 2. Prednisone 10 mg p.o. daily. 3. Pravachol 20 mg p.o. daily. 4. Levothyroxine 75 mcg daily. 5. Lasix 20 mg p.o. daily p.r.n. 6. Potassium 10 mEq as needed orally. 7. Hydrochlorothiazide 25 mg daily. DISCUSSION 1. A total of 60 minutes was spent in counseling today, 100% of which was face to face. At today's chemotherapy teaching session, we discussed ER/WA-positive right breast cancer diagnosis as well as the planned chemotherapy regimen and toxicities associated with aromatase inhibitor therapy with anastrozole versus letrozole. Handouts of each drug were provided and reviewed in detail. 2. Side effects and toxicities of chemotherapy agents included, but were not limited to: A. Bone marrow suppression, specifically neutropenia. She is instructed to contact our offices with any signs of infection. CBC will be monitored routinely. We discussed common sense approaches including routine hand washing and avoidance of crowds/sick people if neutropenic. B. GI side effects. Discussed the possibility of nausea, vomiting, diarrhea, and constipation. She will receive IV antiemetics and will be prescribed antiemetics for home use. If she were to have diarrhea, recommended Imodium. If she were to have constipation, recommended Senna-S or MiraLAX routinely. Further interventions will be made based on side effects. C. side effects. Discussed the importance of adequate hydration (minimum 8 cups of fluid per day) and emptying the bladder on a regular basis. IV hydration can be scheduled as needed. D. Mouth sores. Recommended salt water or baking soda gargles as needed. E. Skin toxicity. Discussed that chemotherapy was very drying to the skin and mucous membranes. Recommended routine moisturizing as well as sun protection. F. Neurotoxicity. Discussed symptoms of peripheral neuropathy. She will be monitored of these symptoms and will notify us if progressive. G. Alopecia. Discussed that hair thinning can occur while on aromatase inhibitor therapy. There is even some data that shows worsening hair loss. H. Fatigue. Discussed that this is one of the most common complaints of patients undergoing chemotherapy. I have encouraged her to remain as active as possible, taking frequent rests as needed. I. Infusion reaction. Reviewed IV premedications. She will be monitored closely during infusions. J. Reproductive health: Discussed importance of preventing while on chemotherapy. Discussed control options and fertility preservation, also to abstain from sexual intercourse for two to three days after chemotherapy administration. 3. I have instructed the patient to call our office if she is prescribed any new medications. It is recommended that multiple supplements or herbal medications may not be taken as these may interfere with the action of the chemotherapy. 4. Discussed dietary issues associated with chemotherapy including anorexia and changes in taste. A handout of nutrition information is given. 5. Office contact information ([phone]) is given. I have encouraged the patient to call with any issues regarding treatment. 6. A tour of the infusion room is given. She is given a packet of information including all of the above. 7. For now, we are going to hold off at three to four more weeks before initiating AI therapy as she does have significant history of arthritis and is currently on a prednisone taper. In the past, she has been on Plaquenil, and it appears that she will be initiating methotrexate in the near future. 8. We discussed specifics related to aromatase inhibitor therapy, to include worsening mood changes, vasomotor symptoms to include hot flashes, weight gain, myalgias and arthralgias, which may worsen her already preexisting arthralgias secondary to her rheumatoid arthritis. We also discussed that aromatase inhibitor therapy can hasten bone mineral density loss, and patient does already have some osteopenia. 9. She will return to clinic after instructed in the next three to four weeks to initiate AI therapy. MTDD
== END 2018-08-14 ==
LOC: ONC 12:42
PROVIDERS: ATTEND Internal Medicine Medical Oncology
DX: C50.911 Malignant neoplasm of unspecified site of right female breast (principal); Z17.0 Estrogen receptor positive status [ER+]; Z90.13 Acquired absence of bilateral breasts and nipples; Z87.891 Personal history of nicotine dependence; Z85.3 Personal history of malignant neoplasm of breast; M85.80 Other specified disorders of bone density and structure, unspecified site; Z78.0 Asymptomatic menopausal state; M06.9 Rheumatoid arthritis, unspecified
CPT/HCPCS: 36415; 71046; 76604; 77080; 82378; 85025; 86300; G0463; 82040; 82247; 82310; 82374; 82435; 82565; 82947; 84075; 84132; 84155; 84295; 84450; 84460; 84520; 99202; 99212

== ENCOUNTER → 2018-08-08 | Outpatient (CLI) | payer MEDICARE ==
[2018-04-06 08:03] VITALS: BMI 38.2
[~2018-08-08] MED LIST changes: +AMOX-559 PO; +DOCU-202 PO; +LEVO-3 PO; +PER PO
--- NOTE | 2018-08-08 13:57 | RADIOLOGY IMAGING REPORT ---
FACILITY: [facility] PATIENT NAME: Cydney Mackey : 1950 MR: [id number] V: [id number] EXAM DATE: [id number] ORDERING PHYSICIAN: KAYODE CASTREJON TECHNOLOGIST: Location: [facility] - [place] Patient: Cydney Mackey : 1950 Visit/Account:[id number] Date of Sevice: 08/08/2018 Exam type: CHEST PA AND LAT History: Prior to starting new arthritis medication Comparison: July 13, 2016. Findings: There is mild hyperinflation of the lung dominique. There is no evidence of acute appearing infiltrates , pleural effusions or pulmonary edema. On the lateral view two nodular densities project over two l ower thoracic vertebral bodies. This may simply represent superimposed shadow however short-term int erval follow-up chest or chest CT is recommended. The cardiac silhouette is borderline enlarged Ther e are spondylotic changes of the thoracic spine IMPRESSION: 1. On the lateral view there are two nodular densities projecting over two contiguous lower thoracic vertebral bodies. These may simply represent superimposed shadows although short-term interval foll ow-up chest or chest CT recommended No evidence of acute pulmonary consolidation Report Dictated By: Lorena Rome MD at 08/08/2018 1:29 PM Report E-Signed By: Lroena Rome MD at 08/08/2018 1:54 PM WSN:[email or web address]
== END ==
LOC: RAD 13:01
PROVIDERS: ATTEND Physician Assistant
DX: R91.8 Other nonspecific abnormal finding of lung field (principal)
CPT/HCPCS: 71046

== ENCOUNTER → 2018-08-15 | Outpatient (CLI) | payer MEDICARE ==
[2018-04-06 08:03] VITALS: BMI 38.2
[~2018-08-15] MED LIST changes: +LEVO-3 PO
--- NOTE | 2018-08-15 10:57 | RADIOLOGY IMAGING REPORT ---
FACILITY: [facility] - [place] PATIENT NAME: Cydney Mackey : 1950 MR: [id number] V: [id number] EXAM DATE: ORDERING PHYSICIAN: KAYODE CASTREJON TECHNOLOGIST: Location: [facility] [place] Patient: Cydney Mackey : 1950 Visit/Account:[id number] Date of Sevice: 08/15/2018 CT CHEST W/O CONTRAST History: Follow-up nodule on chest radiograph TECHNIQUE: Contiguous axial images were performed through the chest to the level of the adrenal gla nds. No IV contrast was administered. Coronal and sagittal reformatting was also performed.Dose Lower ing Technique One of the following dose optimization techniques was utilized in the performance of this exam: Autom ated exposure control; adjustment of the mA and/or kV according to the patient's size; or use of an i terative reconstruction technique. Specific details can be referenced in the facility's radiology C T exam operational policy. COMPARISON STUDIES: Two-view chest August 08, 2018. Lungs / Pleura: At least four small calcified nodules are identified in the left lower lobe largest measuring 5 mm in diameter. A 4 mm calcified nodule also identified in the medial lingula and a 2 m m calcified nodule in the inferior right upper lobe there is a Schmorl's node along the inferior aspe ct of the T11 vertebral body with adjacent sclerosis which likely accounts for the recent radiographi c findings. Smaller Schmorl's nodes are seen at other levels. Mediastinum/nodes: There are calcified subcarinal and AP window lymph nodes Heart and vessels: negative. Musculoskeletal / Body wall: There postsurgical changes from bilateral mastectomies. Schmorl's nod es and spondylotic changes in the thoracic spine Upper abdomen: Cholelithiasis although no evidence of biliary ductal dilatation IMPRESSION: Multiple Schmorl's nodes in the upper thoracic spine. Along the inferior aspect of the T11 vertebral body is a large Schmorl's node with adjacent sclerosis which likely accounts for the recent radiogra phic findings. Postsurgical changes from bilateral mastectomies Multiple small calcified nodules in the lungs and calcified mediastinal lymph nodes likely related to a prior granulomatous process Cholelithiasis although no evidence of biliary ductal dilatation Report Dictated By: Lorena Rome MD at 08/15/2018 10:33 AM Report E-Signed By: Lorena Rome MD at 08/15/2018 10:51 AM ANNEN:AMBER
== END ==
LOC: CT 00:14
PROVIDERS: ATTEND Physician Assistant
DX: M51.44 Schmorl's nodes, thoracic region (principal); Z90.13 Acquired absence of bilateral breasts and nipples; R91.8 Other nonspecific abnormal finding of lung field; K80.20 Calculus of gallbladder without cholecystitis without obstruction
CPT/HCPCS: 71250

== ENCOUNTER → 2018-09-24 | Outpatient (CLI) | payer MEDICARE ==
[2018-04-06 08:03] VITALS: BMI 38.2
[~2018-09-24] MED LIST changes: +ANAS1TAB12 PO
[2018-09-24 15:05] LABS: PLATELET COUNT, AUTOMATED 262 K/uL (150-450)
== END ==
LOC: LAB 14:40
PROVIDERS: ATTEND Physician Assistant
DX: M06.9 Rheumatoid arthritis, unspecified (principal); Z79.899 Other long term (current) drug therapy
CPT/HCPCS: 36415; 85025; 85651; 87340; G0472; 82040; 82247; 82310; 82374; 82435; 82565; 82947; 84075; 84132; 84155; 84295; 84450; 84460; 84520; 86803

== ENCOUNTER 2018-11-15 09:00 | Outpatient (RCR) | payer MEDICARE ==
[2018-04-06 08:03] VITALS: BMI 38.2
--- NOTE | 2018-08-22 07:51 | PT INITIAL EVALUATION ---
MEDICAL DIAGNOSIS: Breast Cancer TREATMENT DIAGNOSIS: Breast Cancer, Axillary Cording, Shoulder Dysfunction, Impingement DATE OF ONSET: 08/22/18 SUBJECTIVE: Cydney is a 67 year old female presenting to physical therapy with decreased shoulder mobility and function following a history of breast cancer. Pt reports that she has at this time had B mastectomies, the L in 2004 and the R in 2018 with 4 axillary lymph nodes removed on the R. Pt has received only oral chemo for treatment but no radiation or infusions. Pt has a history of RA and has been on Prednisone for the last year or so and recently is switching to a new steroid. Pt reports no pain except tightness in B shoulders usually the R is worse than the L. 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 OBJECTIVE: Pt has significant scarring on B chest campbell with incisions on either side >6 inches long. The incision on the R is rolled under with poor mobility. Posture: Increased thoracic kyphosis with rounded shoulders and anterior GH placement R>L. ROM: Shoulder ROM (L,R): flexion: 136, 112, abd: 131, 137, ER: 60, 52, IR: T11 level, T12 level. Strength: Shoulder MMT (L,R): flexion: 5/5 with pain and end range, R 5/5, abd: 5/5 with pain at end range, 5/5, ER: 4+/5, 5/5, IR: 5/5, 5/5, ext: 5/5, 5/5. Pt has little scapular mobility within motion. Palpation: Pt has multiple bands of scar tissue along the anterior and medial campbell of the axilla. Special Tests: Neer (+)L, Empty can (+)L Other Objective Findings: QuickDASH: 38.6% disability ASSESSMENT: Pt presents with signs and symptoms consistent with R shoulder dysfunction and axillary cording secondary to breast cancer as well as L shoulder impingement due to poor scapulothoracic mobility. Physical therapy is indicated to address the above listed deficits for improved function with ADL's and work related duties. Short Term Goals In 4 weeks pt will have full L shoulder ROM without pain with improved scapular mechanics for improved function with ADL's. In 6 weeks pt will improve R shoulder ROM to equal to the L side for improved function with ADL's. In 6 weeks pt will improve QuickDASH disability score to <19% for improved function with ADL's. Patient's Goals Improve shoulder mobility and function. PLAN: Patient to be seen for Manual Therapy/STM/MET Ice/Heat Range of Motion Ultrasound Stretching Iontophoresis Neuromuscular Re-ed Closed Chain Program Electrical Stim Posture/Body mechanics Biofeedback Home Exercise Program Mech./Manual Traction Therapeutic Activities 3x/Week for 6 Weeks If you have any questions, comments, or concerns about this report or plan, please contact me at . Thank you, Savita Salazar, PT, DPT, CLT MTDD
--- NOTE | 2018-09-21 18:21 | PT PLAN OF CARE ---
Physician: Vaishali Cerda, SASH STICKER, BREAD MOLDER Patient is being seen: 2-3x/Week Therapist: Savita Salazar, PT, DPT, CLT Medical Diagnosis: Breast Cancer Treatment Diagnosis: Breast Cancer, Axillary Cording, Shoulder Dysfunction, Impingement Date of Onset: 08/22/18 Date of Initial Evaluation: 08/20/18 Date patient was last seen: 09/21/18 Number of treatments: 10 Number of cancellations/No shows: 1 INTERVENTIONS: Manual Therapy/STM/MET Ice/Heat Range of Motion Ultrasound Stretching Iontophoresis Neuromuscular Re-ed Closed Chain Program Electrical Stim Posture/Body mechanics Biofeedback Home Exercise Program Mech./Manual Traction Therapeutic Activities GOALS: In 4 weeks pt will have full L shoulder ROM without pain with improved scapular mechanics for improved function with ADL's. MET In 6 weeks pt will improve R shoulder ROM to equal to the L side for improved function with ADL's. In 6 weeks pt will improve QuickDASH disability score to <19% for improved function with ADL's. PATIENT'S GOAL: Improve shoulder mobility and function. Status of Patient's Goals: 1/3 MET Patient Compliance: Good Prognosis: Good Reasons for continuing therapy: Cydney shows excellent progress with improved ROM and functional mobility of B shoulders. Pt remains to have significant scar tissue adhesions, R>L but tissue is softer to touch surrounding and shows gradual improvements in mobility. Pt reports decreased pain with ADL's and improved energy. Further PT to maintain functional mobility, reinforcing improved scapular mechanics, as well as continue improvements in scar tissue mobility. Posture: Increased thoracic kyphosis with rounded shoulders and anterior GH placement R>L. ROM: Shoulder ROM (L,R): flexion: 155, 135, abd: 155, 140, ER: 60, 60, IR: T11 level, T12 level. Strength: Shoulder MMT (L,R): 5/5 in all major motions without pain Palpation: Pt has multiple bands of scar tissue along the anterior and medial campbell of the axilla. Special Tests: Neer (+)L, Empty can (+)L Outcome Measures: QuickDASH: 40.9% Impairment If you have any questions or concerns, please feel free to contact me at [phone]. Thank you, Savita Salazar, PT, DPT, CLT [facility]
--- NOTE | 2018-10-25 16:32 | PT PLAN OF CARE ---
Physician: Vaishali Cerda, POWDER WORKER, VEGETABLE FARMING SUPERVISOR Patient is being seen: 2-3x/week Therapist: Savita Salazar, PT, DPT, CLT Medical Diagnosis: Breast Cancer Treatment Diagnosis: Breast Cancer, Axillary Cording, Shoulder Dysfunction, Impingement Date of Onset: 08/22/18 Date of Initial Evaluation: 08/20/18 Date patient was last seen: 10/24/18 Number of treatments: 20 Number of cancellations/No shows: 2 INTERVENTIONS: Manual Therapy/STM/MET Ice/Heat Range of Motion Ultrasound Stretching Iontophoresis Neuromuscular Re-ed Closed Chain Program Electrical Stim Posture/Body mechanics Biofeedback Home Exercise Program Mech./Manual Traction Therapeutic Activities GOALS: In 4 weeks pt will have full L shoulder ROM without pain with improved scapular mechanics for improved function with ADL's. MET In 6 weeks pt will improve R shoulder ROM to equal to the L side for improved function with ADL's. In 6 weeks pt will improve QuickDASH disability score to <19% for improved function with ADL's. PATIENT'S GOAL: Improve shoulder mobility and function. Status of Patient's Goals: 1/3 MET Patient Compliance: Good Prognosis: Good Reasons for continuing therapy: Cydney shows excellent progress with ADL's and functional mobility of the shoulder with ROM improving and strength full in all major motions. Impingement symptoms have all but resolved with no longer any pain in the shoulder. Soft tissue restrictions and axillary cording remain present but with significant improvements in mobility with one section of adhesion on the medial incision remaining stiff and mild mobility off ribs. Further PT to continue with scar tissue management for functional mobility with ADL's. Posture: Increased thoracic kyphosis with rounded shoulders and anterior GH placement R>L. ROM: Shoulder ROM (L,R): flexion: 145, 140, abd: 155, 140, ER: 60, 60, IR: T12 level, T12 level. Strength: Shoulder MMT (L,R): 5/5 in all major motions without pain Palpation: Pt has multiple bands of scar tissue along the anterior and medial campbell of the axilla. Outcome Measures: QuickDASH: 40.9% Impairment If you have any questions or concerns, please feel free to contact me at [phone]. Thank you, Savita Salazar PT, DPT, CLT [facility]
[~2018-11-15 09:00] MED LIST changes: +EXEM25TA4 PO
== END 2018-11-18 ==
LOC: PT 09:00
PROVIDERS: ATTEND Nurse Practitioner
DX: I97.2 Postmastectomy lymphedema syndrome (principal); M25.511 Pain in right shoulder; M25.512 Pain in left shoulder; Z90.13 Acquired absence of bilateral breasts and nipples; Z85.3 Personal history of malignant neoplasm of breast
CPT/HCPCS: 97162

== ENCOUNTER 2018-11-15 13:33 | Outpatient (RCR) | payer MEDICARE ==
[2018-04-06 08:03] VITALS: BMI 38.2
[2018-09-05 14:53] VITALS: BP 123/71
--- NOTE | 2018-09-06 13:13 | ONCOLOGY FOLLOW UP NOTE ---
EVENT DATE: September 05, 2018 DIAGNOSES 1. ER/WA positive right breast cancer, status post mastectomy. 2. Remote history of left breast DCIS (2003), status post mastectomy. CHIEF COMPLAINT Patient is here today for ongoing followup regarding her right breast cancer. She also has a remote history of left breast DCIS, also status post mastectomy. She has recently had a right mastectomy. She is here to discuss initiation of aromatase inhibitor therapy. INTERIM HISTORY Cydney returns to the clinic for ongoing followup. She is status post right mastectomy on April 08, 2018. She has had some ongoing difficulty with some limited range of motion in the right arm, although this has improved. We did initiate her physical therapy after her last visit with us on August 08, 2018. She reports doing well with PT. She is not having any focal pain to that area. The soreness has improved. She does continue to have some generalized arthralgias, which she attributes to her rheumatoid arthritis. She is currently awaiting new medication and is understandably frustrated as she has not yet started this. She did require extensive lab workup per her docket clerk and additionally needed a chest x-ray and CT scan. She tells me today that she was then referred to a business professor for TB testing, which she believes was negative. She tells me this was all part of the workup for her new medication. She is under the care of Dr. Norton in [facility]. She visits with Asia, his physician procurement assistant, often. Other than her RA, she reports feeling well. She has a good appetite and believes her weight is stable. She has not had any recent infection since her last visit. She has now completed a steroid taper through her docket clerk as she did have a couple of days left to finish this at our last visit. Our plan was to wait on initiating aromatase inhibitor until she was off steroids. She has not had any shortness of breath, chest pain or cough. She has not had any mood changes. She reports that she is quite active and walks quite a bit for work. 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 She is on her feet quite a bit. Today, she does report some swelling in her lower extremities, slightly worse on the left lower extremity. She reports that this is common with with her rheumatoid arthritis and does tend to flare up quite a bit. She is able to ambulate well. She is on diuretics for this through her other physicians and is on daily furosemide. ONCOLOGY HISTORY 1. Stage 1 ER/WA positive invasive ductal carcinoma of the right breast, status post right mastectomy April 08, 2018. Four sentinel lymph nodes negative. No lymphovascular invasion. HER2/holly is negative by FISH. Ki-67 was 12.9%. Oncotype DX recurrence score was 17, low risk. 2. 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 The patient underwent mastectomy and she has had no evidence of recurrence. PAST MEDICAL HISTORY 1. Right breast cancer, as above. 2. Left breast DCIS, 2003. 3. Rheumatoid arthritis, diagnosed in September 2017. 4. Hypothyroidism. PAST SURGICAL HISTORY 1. Left mastectomy, 2003. 2. Right mastectomy, 2017. SOCIAL HISTORY Patient is single. She has two grown daughters. 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 She quit smoking about 20 years ago. There is no history of alcohol abuse or illicit drug use. FAMILY HISTORY Her mother of lung cancer. She was a smoker. Her father of complications of diabetes at age 45. A paternal aunt had reportedly been diagnosed with bilateral breast cancer at a very advanced age. ALLERGIES No known drug allergies. MEDICATIONS 1. Plaquenil 200 mg p.o. b.i.d. 2. Prednisone 10 mg p.o. daily. 3. Pravachol 20 mg p.o. daily. 4. Levothyroxine 75 micrograms daily. 5. Lasix 20 mg p.o. daily p.r.n. 6. Potassium 10 mEq as needed orally. 7. Hydrochlorothiazide 25 mg daily. REVIEW OF SYSTEMS CONSTITUTIONAL: Patient denies any recent chills, fevers or night sweats. No recent infections. HEENT: No vision changes. No tinnitus. No mouth sores. CARDIOVASCULAR: No chest pain. No syncope or presyncope. RESPIRATORY: No significant cough, sputum production or hemoptysis. No pleuritic chest pain. GI: No abdominal pain, nausea, vomiting, constipation, diarrhea, bright red blood per rectum or melena. : No dysuria, hematuria or genitourinary discharge. ENDOCRINE: No heat or cold intolerance. Energy level is stable. PSYCH: She denies any severe depression, severe anxiety, suicidal or homicidal ideation. DERMA: She still notices a small nodule over the right chest wall, which was scanned with ultrasound at last visit and was found to be benign. She has no pain to the area. No rash. EXTREMITIES: She does have a history of bilateral lower extremity edema which tends to fluctuate at times. She is on daily diuretics. She currently has bilateral extremity edema. MUSCULOSKELETAL: She reports generalized arthralgias and generalized pain related to her arthritis. PHYSICAL EXAMINATION VITAL SIGNS: Temperature 98.6, P 72, R 16, BP 123/70, oxygen saturation 92% on room air. GENERAL: This is a pleasant 67-year old female who appears well-hydrated, well- nourished and is in no acute distress. She is in great spirits. HEAD: Atraumatic, normocephalic. EYES: Anicteric sclerae. ENT/MOUTH: No mucositis. No oral ulcerations or lesions. NECK: Supple. No lymphadenopathy. No JVD. DERM: Small, approximately 2 cm nodule noticed over the right chest wall. This may be a lipoma, though this is somewhat firm. No rash. NEURO: Patient is alert and oriented x3. Gait is normal. Grossly nonfocal. PSYCH: Mood and affect are within normal limits. LUNGS: Clear breath sounds to auscultation bilaterally. Chest expansion is symmetrical. Respiratory effort is normal. CARDIOVASCULAR: Regular rate and rhythm. No ectopy. EXTREMITIES: Patient has 2+ bilateral lower extremity edema to the upper calf. Left lower extremity is slightly more edematous than the right. She is not using compression stockings. LABORATORY No labs today. CBC on August 08, 2018: Unremarkable. CMP on the same date was unremarkable. CEA on the same date was normal at 1.4 and CA 27-29 was normal at 15.5. IMAGING Bone densitometry on June 12, 2018: 1. Lumbar spine: Normal. There has been 7% increase in the bone mineral density since previous exam. 2. Left total hip: Osteopenia. There has been 0.9% decrease in the bone mineral density since the previous exam. 3. Femoral neck: Bone mineral density is 0.876 g/cm. 4. The next DEXA scan of this patient should include the following sites: L2, L4 and the left hip. IMPRESSION AND PLAN This is a pleasant 67-year old female with a 0.8 cm ER/WA positive right breast cancer, status post mastectomy. This was done on April 08, 2018. We were trying to give her time to recover and our plan is to initiate aromatase inhibitor. We also wanted patient to stop prednisone taper prior to initiating anastrozole. Her steroid taper was being managed by her docket clerk for her RA. She is now off taper and is awaiting new medication therapy in the next couple of days. She has undergone extensive lab testing with her docket clerk and has even seen a business professor as part of workup. Previously, she was on Plaquenil. We have communicated with her docket clerk as far as our plans to place her on aromatase inhibitor and we are all aware that prednisone, which she recently discontinued, and aromatase inhibitors can cause further bone loss. She is up to date with bone density. Patient is slightly frustrated in regards to her general pain and was worried about waiting to start aromatase inhibitor. We also recommended physical therapy at her last visit, which she has now started and is tolerating well. 1. Endocrine therapy: Patient will initiate daily anastrozole 1 mg. This was sent to her local pharmacy via E-prescription. She was sent in a prescription for #30 with one refill. She was also given printed educational material on Arimidex. We conducted teaching for aromatase inhibitor therapy today. We discussed common side effects related to aromatase inhibitor therapy to include worsening bone loss, vasomotor symptoms, mood changes, weight gain and transaminitis amongst others. 2. History of rheumatoid arthritis: We are, of course, going to need to monitor her closely given the fact that AI therapy can certainly cause some arthralgias and she does already have significant history positive for rheumatoid arthritis. She does currently have quite a bit of pain but is about to start possibly methotrexate. 3. I asked the patient to return to the clinic in approximately four weeks for standard followup, to use as a toxicity check after initiating Arimidex. 4. Our office is going to contact Dr. Norton to notify them of our initiation of aromatase inhibitor therapy. MACY
[2018-10-18 16:09] VITALS: BP 140/72
--- NOTE | 2018-10-25 16:44 | ONCOLOGY FOLLOW UP NOTE ---
EVENT DATE: October 18, 2018 REASON FOR FOLLOWUP 1. ER/ND-positive right breast cancer, status post mastectomy. 2. Remote history of left breast DCIS (2003), status post mastectomy. INTERIM HISTORY Cydney returns to the clinic for a followup visit today. She reports that she had started taking Arimidex recently after visiting with Jannet Cerda, Nurse Practitioner. She continues to have arthralgias due to rheumatoid arthritis, and her arthralgias became substantially worse when she started Arimidex. She stopped it after about five doses. Since that time, the arthralgias have improved slightly, but she is understandably quite concerned about restarting the medication. She denies fever. She reports no new skin changes. She has noticed no lumps or bumps under the arms. She denies abdominal pain and changes in bowel or bladder habits. She continues to be followed in Rheumatology, and she continues to work. REVIEW OF SYSTEMS Otherwise negative, and all systems are reviewed. ONCOLOGY HISTORY 1. Stage I, ER/ND-positive invasive ductal carcinoma of the right breast, status post right mastectomy April 08, 2018. Four sentinel lymph nodes negative. No lymphovascular invasion. HER2/holly is negative by FISH. Ki-67 was 12.9%. Oncotype DX recurrence score was 17, low risk. 2. 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 The patient underwent mastectomy, and she has had no evidence of recurrence. 3. Attempted initiation of adjuvant aromatase inhibitor therapy with Arimidex. Discontinued by patient due to severe arthralgias. PAST MEDICAL HISTORY 1. Right breast cancer, as above. 2. Left breast DCIS, 2003. 3. Rheumatoid arthritis, diagnosed in September 2017. 4. Hypothyroidism. PAST SURGICAL HISTORY 1. Left mastectomy, 2003. 2. Right mastectomy, 2018. MEDICATIONS 1. Plaquenil 200 mg p.o. b.i.d. 2. Prednisone 10 mg p.o. daily. 3. Pravachol 20 mg p.o. daily. 4. Levothyroxine 75 mcg daily. 5. Lasix 20 mg p.o. daily p.r.n. 6. Potassium 10 mEq as needed orally. 7. Hydrochlorothiazide 25 mg daily. 8. Patient reports being on methotrexate. ALLERGIES No known drug allergies. SOCIAL HISTORY Patient is single. She has two grown daughters. 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 She quit smoking about 20 years ago. There is no history of alcohol abuse or illicit drug use. FAMILY HISTORY Her mother of lung cancer. She was a smoker. Her father of complications of diabetes at age 45. A paternal aunt had reportedly been diagnosed with bilateral breast cancer at a very advanced age. VITAL SIGNS Temperature 98.6, blood pressure 140/72, heart rate is 75, respirations 14, oxygen saturation 95% on room air. PHYSICAL EXAMINATION GENERAL: Patient is alert and oriented times three, no apparent distress, sitting in the exam room chair. She is interactive and pleasant. She appears somewhat tired. HEENT: Anicteric sclerae. NEUROLOGIC: Grossly nonfocal, although her gait is somewhat antalgic. EXTREMITIES: No edema or cyanosis. SKIN: No concerning rash or lesion. LABORATORY STUDIES Reviewed per the [facility] record. ASSESSMENT AND PLAN Stage I, ER/ND-positive right breast cancer, status post mastectomy. I had a good visit with Cydney today. We spent time discussing her brief experience with Arimidex therapy. She only took a few days of the medication, and because she had experienced an increase in her arthralgias, she discontinued the drug. We spent a good deal of time today discussing her options. We could potentially move to tamoxifen, or she could try a different aromatase inhibitor. After further discussion, we have decided to have her try Aromasin. I have asked her to call us if worsening arthralgias again become a problem. If this is, indeed, the case, she can consider tamoxifen, but she should have a clinic visit to discuss this further. The patient agrees with the plan. I will write her a prescription for Aromasin today. We discussed side effects. I would like to have her follow up with Wendy Aguirre, Nurse Practitioner, in the next few weeks to see how she is doing. All questions answered today. I spent a total of 30 minutes of time face to face with the patient today, 25 minutes of this was spent in direct counseling and coordination of care. MACY
[2018-11-15 13:44] VITALS: BP 126/72
--- NOTE | 2018-11-15 20:35 | ONCOLOGY FOLLOW UP NOTE ---
EVENT DATE: November 15, 2018 CHIEF COMPLAINT Followup on bilateral breast cancer. HISTORY OF PRESENT ILLNESS Patient is a 67-year-old female who was seen today in followup. She was diagnosed with right breast cancer in March 2018 and underwent mastectomy. Tumor was ER/ID positive, and she began treatment with anastrazole in August 2017. She tolerated this poorly and was changed to exemestane in September 2017. She presents today with significant side effects including ongoing hot flashes, significant night sweats, and diffuse arthralgias. At the same time, she has been followed by Rheumatology, who initially treated her with Plaquenil and prednisone for presumed rheumatoid arthritis. Ms. Mackey tells me today that now her physician does not believe she has rheumatoid arthritis. The hole digger operator has recommended she be seen by Pain Management. Methotrexate was prescribed, but this is being discontinued, and she is tapering off from the Plaquenil. Cydney is overwhelmed by how poorly she feels. She has been undergoing physical therapy for a prior trauma to her left upper arm, which has been helpful. She has not been able to work this summer due to all these side effects. ONCOLOGY HISTORY Patient was diagnosed with left breast DCIS in 2003 and underwent a mastectomy. She did not receive endocrine therapy. She was then noted to have an abnormal mammogram in March 2018 and underwent a right mastectomy. Pathology from the right mastectomy April 05, 2018, showed an invasive ductal carcinoma, grade 2, 0.8 cm. Four sentinel lymph nodes were negative, and no lymphovascular invasion was noted. Tumor was estrogen receptor positive 80.5%, progesterone receptor positive 15%, and HER2/holly negative by FISH. Ki-67 was 12.9%. Oncotype DX recurrence score was 17, low risk, conferring an 11% chance of distant disease recurrence after five years of tamoxifen alone. Began anastrozole in August 2017, but tolerated this poorly. Changed to exemestane in September 2017. PAST MEDICAL HISTORY 1. Left breast DCIS, 2003. 2. Right breast cancer, March 2018. 3. Rheumatoid arthritis, September 2017 (?). 4. Hypothyroidism. PAST SURGICAL HISTORY 1. Left mastectomy, 2003. 2. Right mastectomy, 2017. FAMILY HISTORY Mother of lung cancer (smoker). Father of complications from diabetes at age 45. Paternal aunt was diagnosed with bilateral breast cancer at a very advanced age. SOCIAL HISTORY Patient is single. She has two grown daughters. 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 She quit cigarettes approximately 20 years ago. She does drink occasional wine. MEDICATIONS 1. Plaquenil 200 mg daily. 2. Pravachol 20 mg daily. 3. Levothyroxine 100 mcg daily. 4. Folic acid 800 mg daily. 5. Vitamin D3 5000 International Units daily. ALLERGIES No known drug allergies. REVIEW OF SYSTEMS A 12-point review of systems is performed and is negative except as stated above. PHYSICAL EXAMINATION VITAL SIGNS: BP 124/72, P 76, R 16, temp 97.4, O2 sat 93%. GENERAL: Patient is a well-developed, well-nourished female in no acute distress. She is somewhat tearful on exam today. HEAD: Normocephalic, atraumatic. EYES: Sclerae anicteric. MOUTH: Slightly dry mucous membranes. No lesions. NECK: Supple. No palpable adenopathy. LUNGS: Clear bilaterally. CARDIOVASCULAR: Heart rate regular, 76 per minute. EXTREMITIES: Chronic lower extremity edema. NEUROLOGIC: Nonfocal. LABORATORY No lab. IMPRESSION The patient is a 67-year-old female with a history of left breast DCIS in 2004, status post left mastectomy. Diagnosed with right breast cancer on April 05, 2018. She underwent right mastectomy, which showed an invasive ductal carcinoma, grade 2, 0.8 cm with four sentinel nodes negative. No lymphovascular invasion noted. ER/ID positive, HER2/holly negative by FISH. Oncotype DX recurrence score low risk. Began anastrozole in August 2017, but tolerated this poorly. Changed to exemestane in September 2017. PLAN 1. Right breast cancer. Patient presents today with multiple complaints likely related to exemestane as well as the methotrexate. She is in the process of getting off both the Plaquenil and methotrexate. At this point, I have recommended she discontinue the exemestane for the next month. She will be seen again in one month to discuss the possibility of tamoxifen. We briefly discussed possible side effects. 2. ? rheumatoid arthritis. She states that her hole digger operator now does not believe she has rheumatoid arthritis. Methotrexate was prescribed, but this has been discontinued. Plaquenil is also being tapered, and Ms. Mackey is happy about this. 3. Arthralgias. Diffuse arthralgias, now not felt to be related to rheumatoid arthritis. Cydney states that she does have significant osteoarthritis. She has been referred to Pain Management, but is choosing not to do this. She plans to follow up with Dr. Salgado for further care. 4. Follow up in one month for continued care. At that time, we will discuss the possibility of a trial of tamoxifen. MACY
== END 2018-12-04 ==
LOC: ONC 13:33
PROVIDERS: ATTEND Internal Medicine Medical Oncology
DX: C50.911 Malignant neoplasm of unspecified site of right female breast (principal); Z17.0 Estrogen receptor positive status [ER+]; Z79.811 Long term (current) use of aromatase inhibitors; M06.9 Rheumatoid arthritis, unspecified; M85.88 Other specified disorders of bone density and structure, other site; Z87.891 Personal history of nicotine dependence
CPT/HCPCS: G0463 ×3; 99212

== ENCOUNTER 2018-11-19 08:15 | Outpatient (RCR) | payer MEDICARE ==
[2018-04-06 08:03] VITALS: BMI 38.2
--- NOTE | 2018-11-19 10:55 | PT PLAN OF CARE ---
Physician: Vaishali Cerda, REGIONAL EDUCATION MANAGER, MANAGER OF REVENUE Patient is being seen: 2x/Week Therapist: Savita Salazar, PT, DPT, CLT Medical Diagnosis: Breast Cancer Treatment Diagnosis: Breast Cancer, Axillary Cording, Shoulder Dysfunction, Impingement Date of Onset: 08/22/18 Date of Initial Evaluation: 08/20/18 Date patient was last seen: 11/19/18 Number of treatments: 26 Number of cancellations/No shows: 4 INTERVENTIONS: Manual Therapy/STM/MET Ice/Heat Range of Motion Ultrasound Stretching Iontophoresis Neuromuscular Re-ed Closed Chain Program Electrical Stim Posture/Body mechanics Biofeedback Home Exercise Program Mech./Manual Traction Therapeutic Activities GOALS: In 4 weeks pt will have full L shoulder ROM without pain with improved scapular mechanics for improved function with ADL's. MET In 6 weeks pt will improve R shoulder ROM to equal to the L side for improved function with ADL's. MET In 6 weeks pt will improve QuickDASH disability score to <19% for improved function with ADL's. MET PATIENT'S GOAL: Improve shoulder mobility and function. Status of Patient's Goals: 3/3 MET Patient Compliance: Good Prognosis: Good Reasons for discharge from therapy: Cydney is to discharge from physical therapy at this time secondary to competition of 3/3 functional goals. Throughout therapy pt has overall showed reductions in pain as well as improved strength, ROM and function with B UE. Upon discharge pt is to continue with axillary and pectoral stretching and scapular activation exercises to maintain function and strength without pain. Additionally pt is to seek further PT if any symptoms recur or worsen. ROM: Shoulder ROM (L,R): flexion: 145, 145, abd: 150, 150, ER: 60, 60, IR: T12 level, T12 level. Strength: Shoulder MMT (L,R): 5/5 in all major motions without pain Outcome Measures: QuickDASH: 0% Impairment If you have any questions or concerns, please feel free to contact me at [phone]. Thank you, Savita Salazar, PT, DPT, CLT [facility]
== END 2018-11-19 18:00 | disposition home or self-care (01) ==
LOC: PT 08:15
PROVIDERS: ATTEND Nurse Practitioner
DX: I97.2 Postmastectomy lymphedema syndrome (principal); M25.511 Pain in right shoulder; M25.512 Pain in left shoulder; Z90.13 Acquired absence of bilateral breasts and nipples; Z85.3 Personal history of malignant neoplasm of breast